=== PATIENT | female | born 1950 | race Caucasian/White ===

== ENCOUNTER → 2018-02-21 | Outpatient (CLI) | payer OTHER ==
[~2018-02-21] MED LIST: ALBU90OI61 INH; AZIT500 PO; GUAI600T33 PO; LEVSOD100 PO; PROM25 PO; THYROID; VENL75ER PO
[2018-02-22 00:02] LABS: Stool Occult Bld Immuno 1 Negative (NEGATIVE)
[2018-02-22 00:03] LABS: Stool Occult Bld Immuno 2 Negative (NEGATIVE)
== END | disposition home or self-care (01) ==
LOC: LAB EV 07:00
PROVIDERS: Internal Medicine Gastroenterology
DX: K57.30 Diverticulosis of large intestine without perforation or abscess without bleeding (principal); Z83.71 Family history of colonic polyps
CPT/HCPCS: G0328

== ENCOUNTER 2020-05-12 11:44 | Day surgery (SDC) | payer OTHER ==
[~2020-05-12] VITALS: Ht 172.7 cm; Wt 117.7 kg
[~2020-05-12 11:44] MED LIST changes: +Azor 10-20 MG1 EACH; +DICL25ER; +LEVSOD50; +LOSA25; +POTBIC25; +SITA25T2; +TRIA50; +VENL25
== END 2020-05-12 13:56 | disposition home or self-care (01) ==
LOC: ORSCSDS 11:44
PROVIDERS: Internal Medicine Gastroenterology
PROC: 0DB68ZX Excision of Stomach, Via Natural or Artificial Opening Endoscopic, Diagnostic (ICD-10-PCS; principal; 2020-05-12 13:00)
DX: K76.0 Fatty (change of) liver, not elsewhere classified (principal); K74.69 Other cirrhosis of liver; I85.00 Esophageal varices without bleeding; K29.70 Gastritis, unspecified, without bleeding; K31.89 Other diseases of stomach and duodenum; I10 Essential (primary) hypertension; K76.6 Portal hypertension; G47.30 Sleep apnea, unspecified; E11.9 Type 2 diabetes mellitus without complications; Z68.41 Body mass index [BMI] 40.0-44.9, adult; Z79.84 Long term (current) use of oral hypoglycemic drugs; G47.33 Obstructive sleep apnea (adult) (pediatric); Z79.899 Other long term (current) drug therapy
CPT/HCPCS: 82947; 87081; 88305; 88342; J2704; J7120

== ENCOUNTER 2022-06-01 12:54 | Day surgery (SDC) | payer OTHER ==
[~2022-06-01] VITALS: Ht 172.7 cm; Wt 107.5 kg
[2022-06-01] MEDS ORDERED: METOPROLOL SUCC25 MG PO (13:54)
[2022-06-01] MEDS ORDERED: METF500C (13:54)
[2022-06-01] MEDS ORDERED: FURO20 PO (13:56)
[2022-06-01] MEDS ORDERED: FARXIGA5 MG PO (13:57)
[2022-06-01] MEDS ORDERED: POTA10T PO (13:58)
--- NOTE | 2022-06-01 17:02 | NUR ---
06/01/22 1702 Wyatt Cruz DISCHARGE PAPERWORK LEFT IN SDU AFTER DISCHARGE. PT'S STEPHANY WAS NOTIFIED. HE RETURNED TO END MATCHER PAPERWORK AND ICE PACK AT 1655.
== END 2022-06-01 16:14 | disposition home or self-care (01) ==
LOC: ORSCSDS 12:54
PROVIDERS: Podiatrist
PROC: 0SNM0ZZ Release Right Metatarsal-Phalangeal Joint, Open Approach (ICD-10-PCS; principal; 2022-06-01 14:15)
PROC: 0LNV0ZZ Release Right Foot Tendon, Open Approach (ICD-10-PCS; principal; 2022-06-01 14:15)
DX: M20.41 Other hammer toe(s) (acquired), right foot (principal); M20.42 Other hammer toe(s) (acquired), left foot; G47.33 Obstructive sleep apnea (adult) (pediatric); E11.42 Type 2 diabetes mellitus with diabetic polyneuropathy; E66.9 Obesity, unspecified; Z68.36 Body mass index [BMI] 36.0-36.9, adult; Z79.899 Other long term (current) drug therapy
CPT/HCPCS: 82947; A9270; J0690; J2704; J2795; J3010

== ENCOUNTER → 2022-11-07 | Outpatient (CLI) | payer OTHER ==
[~2022-11-07] MED LIST changes: +FARXIGA5 MG PO; +FURO20 PO; +METF500C; +METOPROLOL SUCC25 MG PO; +POTA10T PO
== END | disposition home or self-care (01) ==
LOC: LAB 15:28 → LAB SHORT 15:28
DX: N39.0 Urinary tract infection, site not specified (principal)
CPT/HCPCS: 87077; 87086; 87186

== ENCOUNTER 2022-11-29 10:21 | Day surgery (SDC) | payer OTHER ==
[2022-11-29] VITALS (11 sets, daily range): BP systolic 121–164; BP diastolic 61–82
[~2022-11-29] VITALS: Ht 175.3 cm; Wt 106.0 kg
[~2022-11-29 10:21] MED LIST changes: +FURO20; +GABA300 PO; +Norco 5-325 Ta1 EACH PO
[2022-11-29] MEDS ORDERED: ACET500 PO (11:27)
--- NOTE | 2022-11-29 15:45 | NUR ---
DISCHARGE NOTE PT A&OX4, TOLERATING PO FLUIDS AND FOOD, BREATHING RA, VSS. Discharge instructions reviewed with patient. Patient verbalizes understanding. Copy given to patient to take home. Dressing to procedure site clean, dry, intact with no visible drainage, swelling, erythema or bruising noted.TOES TO L FOOT ARE PINK WARM AND DRY WITH BRISK CAP REFILL. PIN TO SECOND TOE IN PLACE. Discharged via wheelchair to private car for ride home.
== END 2022-11-29 16:00 | disposition home or self-care (01) ==
LOC: ORSCMMR 10:21 → ORD 11:30 → ORSCMMR 11:30 → ORSCSDS 12-20 07:30
PROVIDERS: Podiatrist
PROC: 0SNQ0ZZ Release Left Toe Phalangeal Joint, Open Approach (ICD-10-PCS; principal; 2022-11-29 11:30)
DX: M20.42 Other hammer toe(s) (acquired), left foot (principal); E11.42 Type 2 diabetes mellitus with diabetic polyneuropathy; E11.22 Type 2 diabetes mellitus with diabetic chronic kidney disease; I12.9 Hypertensive chronic kidney disease with stage 1 through stage 4 chronic kidney disease, or unspecified chronic kidney disease; N18.9 Chronic kidney disease, unspecified; Z87.891 Personal history of nicotine dependence; G47.33 Obstructive sleep apnea (adult) (pediatric); Z79.899 Other long term (current) drug therapy; Z79.84 Long term (current) use of oral hypoglycemic drugs
CPT/HCPCS: 82947; 93005; 93010; A9270; J1100; J2001; J2405; J2704; J3010; J7120

== ENCOUNTER 2023-03-02 11:17 | Day surgery (SDC) | payer OTHER ==
[~2023-03-02] VITALS: Ht 172.7 cm; Wt 106.4 kg
[~2023-03-02 11:17] MED LIST changes: +ACET500 PO; +DYAZIDE 37.5-21 EACH PO; +EUTHYROX125 MCG PO; +METO25ER PO
[2023-03-02] MEDS ORDERED: LOSA25 (11:29)
[2023-03-02] MEDS ORDERED: NYAMYC1513 (11:29)
[2023-03-02 13:15] VITALS: BP 110/58
== END 2023-03-02 13:17 | disposition home or self-care (01) ==
LOC: ORSCSDS 11:17
PROVIDERS: Internal Medicine Gastroenterology
PROC: 0DBM8ZX Excision of Descending Colon, Via Natural or Artificial Opening Endoscopic, Diagnostic (ICD-10-PCS; principal; 2023-03-02 12:30)
DX: Z12.11 Encounter for screening for malignant neoplasm of colon (principal); D12.4 Benign neoplasm of descending colon; K57.30 Diverticulosis of large intestine without perforation or abscess without bleeding; I12.9 Hypertensive chronic kidney disease with stage 1 through stage 4 chronic kidney disease, or unspecified chronic kidney disease; E11.22 Type 2 diabetes mellitus with diabetic chronic kidney disease; G47.33 Obstructive sleep apnea (adult) (pediatric); N18.9 Chronic kidney disease, unspecified; Z87.891 Personal history of nicotine dependence; Z79.84 Long term (current) use of oral hypoglycemic drugs; Z79.899 Other long term (current) drug therapy
CPT/HCPCS: 82947; 88305; J2704; J7120

== ENCOUNTER 2024-08-26 10:37 | Day surgery (SDC) | payer OTHER ==
[~2024-08-26] VITALS: Ht 172.7 cm; Wt 97.8 kg
[~2024-08-26 10:37] MED LIST changes: +Balanced Salt Epinephrine Irrigation Solution 500 mL IR SCH; +Diazepam 5 MG Tab PO PRN; +Diazepam 5 MG Tab PO SCH; +LOSA25 PO; +Lidocaine HCl/Pf 1% 5 ML VIAL XX SCH; -METF500C; +METF500C PO; +Moxifloxacin HCL 0.5 MG/0.1 ML 0.4MLSYR LEFTEYE SCH; +NYAMYC1513; +Ondansetron 4 MG SoluTab MM PRN; +PHENYLEPHRINE\\TROPICAMIDE\\TETRACAINE OPHTHALMIC DILATING SOLN LEFTEYE PRN; +Povidone-Iodine 450 DROP/30 ML Solution LEFTEYE SCH; +Povidone-Iodine 450 DROP/30 ML Solution ONE; +Tetracaine HCl/Pf 0.5% Opth Soln 4 ml ONE
[2024-08-26] MEDS ORDERED: Diazepam 10 MG Tab ONE (11:27)
[2024-08-26] MEDS ORDERED: CARVEDILOL6.25 MG PO (11:41)
[2024-08-26] MEDS ORDERED: SPIRONOLACTONE50 MG PO (11:41)
[2024-08-26] MEDS ORDERED: ROSUVASTATIN CA20 MG PO (11:41)
--- NOTE | 2024-08-26 11:44 | NUR ---
08/26/24 1144 Jose Antonio Ying VALIUM 10MG PO RECEIVED 11:30, ANXIETY 0/10
[2024-08-26] MEDS ORDERED: Ondansetron HCl 2 MG / ML 2ML Vial ONE (11:54)
[2024-08-26 12:44] VITALS: BP 122/54
== END 2024-08-26 13:05 | disposition home or self-care (01) ==
LOC: ORSCSDS 10:37
PROVIDERS: Student in an Organized Health Care Education/Training Program
PROC: 08RK3JZ Replacement of Left Lens with Synthetic Substitute, Percutaneous Approach (ICD-10-PCS; principal; 2024-08-26 12:00)
DX: E11.36 Type 2 diabetes mellitus with diabetic cataract (principal); H25.813 Combined forms of age-related cataract, bilateral; F32.A Depression, unspecified; K76.0 Fatty (change of) liver, not elsewhere classified; I10 Essential (primary) hypertension; E03.9 Hypothyroidism, unspecified; G47.33 Obstructive sleep apnea (adult) (pediatric); D69.6 Thrombocytopenia, unspecified; Z79.84 Long term (current) use of oral hypoglycemic drugs; Z79.899 Other long term (current) drug therapy; Z87.891 Personal history of nicotine dependence
CPT/HCPCS: 82947; A9270; J2405; V2632

== ENCOUNTER 2024-09-02 10:02 | Day surgery (SDC) | payer OTHER ==
[~2024-09-02] VITALS: Ht 172.7 cm; Wt 98.0 kg
[~2024-09-02 10:02] MED LIST changes: +CARVEDILOL6.25 MG PO; -Diazepam 5 MG Tab PO PRN; -Diazepam 5 MG Tab PO SCH; -Moxifloxacin HCL 0.5 MG/0.1 ML 0.4MLSYR LEFTEYE SCH; +Moxifloxacin HCL 0.5 MG/0.1 ML 0.4MLSYR RIGHTEYE SCH; +NS 500 ML IV ONE; -Ondansetron 4 MG SoluTab MM PRN; -PHENYLEPHRINE\\TROPICAMIDE\\TETRACAINE OPHTHALMIC DILATING SOLN LEFTEYE PRN; +PHENYLEPHRINE\\TROPICAMIDE\\TETRACAINE OPHTHALMIC DILATING SOLN RIGHTEYE PRN; -Povidone-Iodine 450 DROP/30 ML Solution LEFTEYE SCH; +Povidone-Iodine 450 DROP/30 ML Solution RIGHTEYE SCH; +ROSUVASTATIN CA20 MG PO; +SPIRONOLACTONE50 MG PO
[2024-09-02] MEDS ORDERED: FentaNYL Citrate 50 MCG/ML 2 ML Injection ONE (10:14)
[2024-09-02] MEDS ORDERED: Midazolam HCl 1MG / ML 2ML Vial ONE (10:14)
[2024-09-02] MEDS ORDERED: NS 500 ML IV ONE (10:18)
[2024-09-02 11:27] VITALS: BP 164/82
== END 2024-09-02 11:27 | disposition home or self-care (01) ==
LOC: ORSCSDS 10:02
PROVIDERS: Student in an Organized Health Care Education/Training Program
PROC: 08RJ3JZ Replacement of Right Lens with Synthetic Substitute, Percutaneous Approach (ICD-10-PCS; principal; 2024-09-02 12:00)
DX: H25.11 Age-related nuclear cataract, right eye (principal); E11.36 Type 2 diabetes mellitus with diabetic cataract; E11.22 Type 2 diabetes mellitus with diabetic chronic kidney disease; I12.9 Hypertensive chronic kidney disease with stage 1 through stage 4 chronic kidney disease, or unspecified chronic kidney disease; N18.9 Chronic kidney disease, unspecified; Z87.891 Personal history of nicotine dependence; G47.33 Obstructive sleep apnea (adult) (pediatric); K76.0 Fatty (change of) liver, not elsewhere classified; K74.60 Unspecified cirrhosis of liver; F32.A Depression, unspecified; Z79.899 Other long term (current) drug therapy
CPT/HCPCS: 82947; J2250; J3010; J7040; V2632

== ENCOUNTER → 2025-04-19 | Outpatient (CLI) | payer OTHER ==
[~2025-04-19] MED LIST changes: -Balanced Salt Epinephrine Irrigation Solution 500 mL IR SCH; -Lidocaine HCl/Pf 1% 5 ML VIAL XX SCH; -Moxifloxacin HCL 0.5 MG/0.1 ML 0.4MLSYR RIGHTEYE SCH; -NS 500 ML IV ONE; -PHENYLEPHRINE\\TROPICAMIDE\\TETRACAINE OPHTHALMIC DILATING SOLN RIGHTEYE PRN; -Povidone-Iodine 450 DROP/30 ML Solution ONE; -Povidone-Iodine 450 DROP/30 ML Solution RIGHTEYE SCH; -Tetracaine HCl/Pf 0.5% Opth Soln 4 ml ONE
[2025-04-19 12:20] LABS: BASOPHILS ABSOLUTE AUTO 0.01 K/mm3 (0.00-0.23); BASOPHILS PERCENT AUTO 0 % (0-2); EOSINOPHILS ABSOLUTE AUTO 0.00 K/mm3 (0.00-0.68); EOSINOPHILS PERCENT AUTO 0 % (0-6); Hematocrit 40.8 % (33.0-51.0); Hemoglobin 13.6 g/dL (11.5-16.0); IMMATURE GRAN ABSOLUTE AUTO 0.03 K/mm3 (0.00-0.10); IMMATURE GRAN PERCENT AUTO 0 % (0-1); LYMPHOCYTES ABSOLUTE AUTO 1.27 K/mm3 (0.84-5.20); LYMPHOCYTES PERCENT AUTO 14 % (21-46); MONOCYTES ABSOLUTE AUTO 0.56 K/mm3 (0.16-1.47); MONOCYTES PERCENT AUTO 6 % (4-13); Mean Corpuscular HGB Conc 33.3 g/dL (31.5-36.5); Mean Corpuscular Volume 96 fL (80-100); NEUTROPHILS ABSOLUTE AUTO 7.30 K/mm3 (1.96-9.15); NEUTROPHILS PERCENT AUTO 80 % (41-73); NRBC ABSOLUTE 0.00 K/mm3 (0.00-0.02); NRBC Auto 0.0 /100 WBC (0.0-0.2); RDW Coefficient Variation 14.2 % (11.7-14.2); RDW Standard Deviation 50.2 fL (35.1-46.3)
[2025-04-19 12:21] LABS: Platelet Count 124 K/mm3 (150-400)
[2025-04-19 12:40] LABS: Alanine Aminotransfer (ALT/SGP 31.0 U/L (12-78); Albumin, Blood 4.1 g/dL (3.4-5.0); Albumin/Globulin Ratio 1.2 (0.8-1.8); Anion Gap 17.0 mmol/L (3-11); Aspartate Aminotrans (AST/SGOT 32.0 U/L (12-37); Bilirubin, Total 0.9 mg/dL (0.1-1.0); Blood Urea Nitrogen 38.0 mg/dL (8-24); CO2, Blood 27.0 mmol/L (21-32); Calcium, Blood 9.8 mg/dL (8.5-10.1); Chloride, Blood 102.0 mmol/L (98-108); Creatinine, Blood 1.63 mg/dL (0.40-1.00); Globulin, Blood 3.3 g/dL (2.2-4.0); Glucose, Blood 138.0 mg/dL (70-99); Potassium, Blood 4.5 mmol/L (3.5-5.5); Sodium, Blood 141.0 mmol/L (136-145); Thyroid Stimulating Hormone 0.608 uIU/mL (0.360-4.800); Total Protein, Blood 7.4 g/dL (6.4-8.2)
== END ==
LOC: LAB SHORT 12:16 → LAB 12:16
PROVIDERS: Physician Assistant
DX: R55 Syncope and collapse (principal); E03.9 Hypothyroidism, unspecified; Z86.39 Personal history of other endocrine, nutritional and metabolic disease
CPT/HCPCS: 80053; 83036; 84443; 85025